=== PATIENT | male | born 1955 | race Caucasian/White ===

== ENCOUNTER → 2022-12-07 | Outpatient (CLI) | payer OTHER ==
--- NOTE | 2022-12-07 09:15 | CT ---
EXAMINATION TYPE: CT shoulder LT wo con CT DLP: 465 mGycm, Automated exposure control for dose reduction was used. DATE OF EXAM: 12/07/2022 7:45 AM COMPARISON: Extremity radiograph same day. CLINICAL INDICATION:Male, 67 years old with history of M19.012 PRIMARY OSTEOARTHRITIS, LEFT SHOULDER; TECHNIQUE: Axial images were obtained of the left shoulder . Additional coronal and sagittal reforma tted images and soft tissue and bone window were obtained for review. 3-D reconstruction was created on a separate workstation. Contrast used: None Oral contrast used: None FINDINGS: There is severe degeneration changes of the left shoulder with joint joint articulation, cy sts subchondral sclerosis. There is large osteophytes also present involving the humerus and glenoid. The glenoid bone appears to have minimal subcutaneous chondral cystic change. Rotator cuff muscles a ppears appropriate. No evidence of fracture. No joint effusion. No evidence or dislocation. IMPRESSION: End-stage left shoulder osteoarthrosis changes.
== END | disposition home or self-care (01) ==
LOC: RADCTMAIN 07:17
PROVIDERS: ATTEND Orthopaedic Surgery Sports Medicine
DX: M19.012 Primary osteoarthritis, left shoulder (principal)

== ENCOUNTER → 2023-01-27 | Outpatient (CLI) | payer OTHER ==
[2023-01-27 17:42] LABS: INR 0.9 (<1.2); Prothrombin Time 9.9 sec (9.0-12.0)
[2023-01-27 17:43] LABS: Partial Thromboplastin Time 23.4 sec (22.0-30.0)
[2023-01-27 20:56] LABS: ALT 34 U/L (10-49); AST 26 U/L (14-35); Albumin 4.8 d/dL (3.8-4.9); Albumin/Globulin Ratio 1.92 Ratio (1.60-3.17); Alkaline Phosphatase 81 U/L (41-126); BUN/Creat Ratio 17.14 Ratio (12.00-20.00); Calcium 10.3 mg/dL (8.7-10.3); Carbon Dioxide 27.6 mmol/L (21.6-31.8); Chloride 104 mmol/L (96-109); Globulin 2.5 d/dL (1.6-3.3); Glucose 120 mg/dL (70-110); Potassium 4.6 mmol/L (3.5-5.5); Sodium 143 mmol/L (135-145); Total Bilirubin 0.3 mg/dL (0.3-1.2); Total Protein 7.3 d/dL (6.2-8.2)
[2023-01-27 21:47] LABS: Appearance,Urine Clear (Clear); Bilirubin,Urine Negative (Negative); Blood,Urine Negative (Negative); Color,Urine Dark Yellow (Yellow); Ketones,Urine Negative (Negative); Nitrite,Urine Negative (Negative); PH, Urine 5.5; Specific Gravity,Urine 1.021 (1.001-1.030); Urobilinogen,Urine 0.2 E.U./DL
[2023-01-27 22:09] LABS: HGB 13.6 d/dL (13.0-17.0); MCV 91.1 FL (80.0-97.0); Mean Platelet Volume 10.5 FL (9.5-12.2); NRBC Per 100 WBC 0 X 10*3/uL (0.00-0.01); Platelet Count 324 X 10*3/uL (140-440); RBC 4.39 X 10*6/uL (4.40-5.60); RDW 12.8 % (11.5-14.5); WBC 8.22 X 10*3/uL (4.50-10.00)
== END | disposition home or self-care (01) ==
LOC: LABPAT 16:29
PROVIDERS: ATTEND Orthopaedic Surgery Sports Medicine
DX: Z01.812 Encounter for preprocedural laboratory examination (principal); M19.012 Primary osteoarthritis, left shoulder
CPT/HCPCS: 80053; 81003; 85027; 85610; 85730; 87070

== ENCOUNTER 2023-02-03 05:34 | Day surgery (SDC) | payer OTHER ==
[2023-01-27 15:49] VITALS: BMI 28.6
[~2023-02-03 05:34] MED LIST: ACETAMINOPHEN TAB 500 MG TAB PO PRN; DEXAMETHASONE SOD PHOSPHATE 4 MG/ML 1 ML VIAL IV ONE; GABAPENTIN 300 MG CAP PO PRN; HYDROmorphone 0.5 MG/0.5 ML SYRINGE IVP PRN; LIDOCAINE 1% (10MG/ML) FOR IV START INTRADERMA PRN; MELOXICAM 7.5 MG TAB PO PRN; MIDAZOLAM 2 MG/2 ML VIAL IV PRN; ONDANSETRON 4 MG/2 ML VIAL IVP ONE; ONDANSETRON 4 MG/2 ML VIAL IVP PRN; TRANEXAMIC 1,000 MG/100ML-NACL 1,000 MG in SALINE 1 100ML.BAG IVPB PRN
[2023-02-03] MEDS ORDERED: LACTATED RINGERS 1,000 ML IV ONE ×3 (06:03→09:04)
[2023-02-03] MEDS ORDERED: ROPIVACAINE 5 MG/ML 30 ML VIAL ONE (07:03)
[2023-02-03] MEDS ORDERED: fentaNYL (PF) 50 MCG/ML 2 ML AMP ONE (07:03)
[2023-02-03] MEDS ORDERED: PROPOFOL 10 MG/ML 20 ML VIAL IV ONE (07:03)
[2023-02-03] MEDS ORDERED: ROCURONIUM 10 MG/ML (5 ML VIAL) IV ONE (07:03)
[2023-02-03] MEDS ORDERED: VASOPRESSIN 20 UNIT/ML 1 ML VIAL ONE (07:03)
[2023-02-03] MEDS ORDERED: PHENYLEPHRINE-0.9% NACL SYG 1,000 MCG/10 ML SYRINGE ONE (07:03)
[2023-02-03] MEDS ORDERED: NEOSTIGMINE 1 MG/ML 10 ML VIAL ONE (07:03)
[2023-02-03] MEDS ORDERED: SUCCINYLCHOLINE CHLORIDE 200 MG/10 ML VIAL IV ONE (07:03)
[2023-02-03] MEDS ORDERED: DEXAMETHASONE SOD PHOSPHATE 4 MG/ML 1 ML VIAL ONE (07:03)
[2023-02-03] MEDS ORDERED: TRANEXAMIC 1,000 MG/100ML-NACL PREMIX BAG ONE (07:03)
[2023-02-03] MEDS ORDERED: GLYCOPYRROLATE 0.2 MG/ML 2 ML VIAL ONE (07:03)
[2023-02-03] MEDS ORDERED: LIDOCAINE 1% INJ 10MG/ML (20 ML MDV) ONE (07:03)
[2023-02-03] MEDS ORDERED: ePHEDrine 50 MG/ML 1 ML VIAL ONE (07:03)
[2023-02-03] MEDS ORDERED: ceFAZolin 1,000 MG in SODIUM CHLORIDE 0.9% 1,000 ML IRRIGATION ONE (07:30)
[2023-02-03] MEDS ORDERED: VANCOMYCIN 1,000 MG VIAL MISCELLANE ONE (08:39)
--- NOTE | 2023-02-03 08:57 | P.ANPRN ---
Procedure Note - Anesthesia - Nerve Block Performed Left Interscalene Single Time Out Performed: Yes Date of Procedure: 02/03/23 Procedure Start Time: 06:39 Procedure Stop Time: 06:46 Location of Patient: PreOp Indication: Acute Post-Operative Pain, Requested by Surgeon Sedation Type: Sedate with meaningful contact maintained Preparation: Sterile Prep, Sterile Dressing Position: Sitting Catheter: None Needle Types: Facet Needle Gauge: 21 Ultrasound used to visualize needle placement: Yes Ultrasound used to observe medication spread: Yes Injectate: 0.5% Ropivacaine (see comment for volume) (30 ml + decadron 4 mg) Blood Aspirated: No Pain Paresthesia on Injection Noted: No Resistance on Injection: Normal Image Stored and Saved: Yes Events: Uneventful and Well Tolerated
[2023-02-03] MEDS ORDERED: METOCLOPRAMIDE 5 MG/ML 2 ML VIAL IVP PRN (09:04)
[2023-02-03] MEDS ORDERED: hydrOXYzine pamoate 25 MG CAP PO PRN (09:04)
[2023-02-03] MEDS ORDERED: diphenhydrAMINE 25 MG CAP PO PRN (09:04)
[2023-02-03] MEDS ORDERED: HYDROmorphone 1 MG/ML 1 ML SYRINGE IVP PRN (09:04)
[2023-02-03] MEDS ORDERED: HYDROmorphone 0.5 MG/0.5 ML SYRINGE IVP PRN ×2 (09:04)
[2023-02-03] MEDS ORDERED: ONDANSETRON 4 MG/2 ML VIAL IVP PRN (09:04)
[2023-02-03] MEDS ORDERED: SENNOSIDES-DOCUSATE SODIUM 1 EACH TAB PO PRN (09:04)
--- NOTE | 2023-02-03 09:47 | OP ---
OPERATIVE REPORT DATE OF SERVICE : 02/03/2023 CARD READER: Del Cohen PA-C PREOPERATIVE DIAGNOSIS: Left shoulder osteoarthrosis. POSTOPERATIVE DIAGNOSES: 1. Left shoulder advanced osteoarthrosis. 2. Left shoulder supraspinatus tear. PROCEDURE PERFORMED: Left reverse total shoulder arthroplasty. ANESTHESIA: General endotracheal. ESTIMATED BLOOD LOSS: 100 mL. DRAINS: None. COMPLICATIONS: None apparent. DISPOSITION: Postanesthesia care unit. INDICATIONS: David is a very pleasant 67-year-old male with longstanding left shoulder pain. Workup including x-rays revealed advanced osteoarthrosis of the left shoulder. At this point, it was felt that he has failed conservative management. He would like to proceed with operative intervention. Risks of the procedure were discussed with him in detail. These risks include, but are not limited to, risk of infection, nerve damage, bleeding, pain, instability in the shoulder, loosening of the implants, and deep infection. There is also a small risk of deep vein thrombosis which could lead to fatal pulmonary embolism. The patient understood these risks. All of his questions with regard to the risks of procedure were answered to his satisfaction. An appropriate informed consent was obtained. DESCRIPTION OF PROCEDURE: The patient was identified in the preoperative holding area. Surgical site was marked by both the patient and myself. He was given 2 g of Ancef IV for prophylactic purposes. He was then transported to the operative suite. He was placed supine on the operating room table. General anesthetic was then administered and dosed per the Anesthesia Department without apparent complication. Examination under anesthesia was then performed of the left shoulder. He had elevation to 90 degrees. External rotation at the side was to 10 degrees. The patient was then placed into the beach chair position well-padded in preparation for surgery. Great care was taken to ensure that the cervical spine was in neutral alignment, well-padded and maintained that way throughout the operative procedure. Great care was taken to ensure that his legs were appropriately padded as well. The patient's left upper extremity was then prepped and draped in usual sterile fashion. Standard surgical pause was undertaken to ensure that we were operating the correct site and that appropriate preoperative antibiotics had been given. All staff in the room were in agreement, and we proceeded. The acromion AC joint clavicle and coracoid were marked with a surgical pen. A planned incision starting at the level of clavicle and extending distally over the deltopectoral interval approximately 1 cm lateral to the coracoid was marked with a surgical pen. The incision was then made with a 10-blade scalpel. Dissection was carried down sharply to the deltoid fascia. The deltopectoral interval was then identified at the level of the clavicle. A small band retractor was then placed under the proximal deltoid. I then released the deltoid fascia on the lateral aspect of the cephalic vein. The cephalic vein was protected and left in its bed medially. The cephalic vein was protected throughout the entire case. I then identified the clavipectoral fascia. This was incised proximally to the level of the coracoacromial ligament. The coracoacromial ligament was then left intact. I then used my finger to spread the interval between the conjoint tendon and the subscapularis. I felt for the axillary nerve, which was readily palpable. I then cleared the subacromial subdeltoid spaces of bursal and scar tissue. I then utilized a Brown retractor to hold the deltoid and expose the humeral head. I then proceeded with release of the subscapularis in the anterior inferior shoulder capsule. The rotator cuff was inspected. He did have a tear of the supraspinatus. The rotator interval was then identified. The course of the biceps tendon was also identified. I then released the biceps tendon and tenodesed it to the surrounding soft tissue of the bicipital groove utilizing interrupted 0 Vicryl sutures. I then released the rotator interval. This was released at the base of the coracoid and then out laterally. The subscapularis and capsule were then released intertendinously. The subscapularis and capsule release extended distally in a lazy-S fashion approximately 1 cm medial to the bicipital groove. I then continued to release the capsule along the inferior neck in a vertical fashion to approximately the 6 o'clock position. Great care was taken to ensure that the capsule was always visualized as it was released as to avoid injuring the axillary nerve. I then brought the Faye investment underwriter with the arm externally rotated and abducted. I continued to release the capsule inferomedially to approximately the 4 o'clock position. He had very extensive inferior osteophytes and multiple osseous loose bodies in the inferior axillary pouch. Quite a few of these osteophytes were then removed at this point with a rongeur. I then proceeded with preparation of the humerus. I removed as much of the goat's major osteophytes as possible. I then removed the subchondral plate from the superior aspect of the humeral head utilizing a large rongeur. I then used a starting reamer to gain access to the humeral canal. This was approximately 1 cm medial to the rotator cuff insertion and 1 cm posterior to the bicipital groove. I then prepared the humeral canal with hand reaming. I started with a 6 mm reamer and progressed incrementally in 1 mm increments until firm resistance was encountered at 12 mm. The reamer handle was then left in place. I then utilized a humeral resection guide set at 30 degrees of retrotorsion. The cutting block was set approximately 1 mm above the insertion of the rotator cuff. I then proceeded to osteotomize the head with the oscillating saw. I removed the resection guide and then completed the osteotomy. At this point, I did remove the remaining inferior osteophytes. Again, we had extremely extensive inferior osteophytes. These were removed with a rongeur and multiple loose bodies removed posteriorly as well. I then proceeded with trial stem placement. I broached the canal starting with an 8 mm broach and then incrementally increased up to 12 mm broach. The 12 mm trial stem was then left in place. I made a decision to proceed with a reverse total shoulder arthroplasty given the rotator cuff tear. A bone hook was then used to pull the humerus out laterally. I then continued to inspect the joint for any loose bodies. A few more small ones were removed at this point. The Bhattman retractor was then placed on the posterior glenoid reamer. The arm was then placed in approximately 80 degrees of abduction and in slight flexion on the Faye stand. I then proceeded to remove the hypertrophic labrum to definitively identify the actual glenoid. It did have some posterior glenoid wear. The starting pin was then placed in 10 degrees of inferior tilt and aimed to preferentially take slightly a bit more of the anterior glenoid bone. I then reamed the glenoid with the mini base plate reamer. The reaming was done as minimal as possible as to preserve as much subchondral bone as possible. I then proceeded to place the mini base plate. This was impacted into the real glenoid. I then placed the central screw. A 30 mm central screw was placed. The screw had excellent purchase in bone. I was able to rotate the scapula through the screwdriver when the screw was fully seated. I then proceeded to place peripheral locking screws. The posterior, superior, and inferior screws were placed. The inferior screw was 25 mm and the posterior and superior screws were 15 mm. I then proceeded to placement of the real glenosphere. A 36 mm glenosphere was chosen. I preferentially offset it slightly so that would offset inferiorly. The Diallo taper was dried and then the real glenosphere was impacted onto the base plate. The Diallo taper was firm, I was unable to remove the glenosphere after it was tamped down. I then proceeded with trial with the real glenosphere in. The shoulder was thoroughly irrigated with sterile saline solution with antibiotic added via pulse lavage. We did utilize some of the IrriSept antiseptic solution at this point. I then placed a standard tray and standard poly trial onto the trial stem. The shoulder was then reduced. It was a moderately difficult reduction. The shoulder was very stable throughout a full range of motion. There was no impingement noted. The shoulder was then redislocated very carefully. I made a decision to proceed with the standard tray and standard poly. The trial components were then removed. Again, the wound was thoroughly irrigated with sterile saline solution with antibiotic added via pulse lavage. Again, we utilized the IrriSept antiseptic solution. I then had the business office representative open a size 12 mini stem, a standard tray and a standard poly for 36 mm glenosphere. The stem was then impacted into the proximal humerus in approximately 30 degrees of retrotorsion. The Diallo taper was dried and then the base plate polyethylene was then impacted onto the real stem. The shoulder was then reduced. Again, it was a mildly difficult reduction. It was taken through a full range of motion. It was very stable. There was no undue tension on the conjoint tendon. I felt for the axillary nerve which was readily palpable and intact. At this point in time, no further work was deemed necessary. The shoulder was again thoroughly irrigated and the remaining IrriSept solution was utilized. Approximately 500 mg of vancomycin powder was then placed deep. The deltopectoral interval was reapproximated with 0 Vicryl interrupted suture. The remaining 500 mg of vancomycin powder was then placed subcutaneously. The subcutaneous tissue was closed with 2-0 Vicryl interrupted suture and the skin was closed with 3-0 Quill running suture. Dermabond was applied to the incision. Sterile dressing was applied and the patient's left upper extremity was placed in a standard sling. All sponge and needle counts were deemed correct prior to closure. The patient tolerated the procedure without apparent complication. He was transferred to the recovery room in stable condition. MMODL / NATON: [id number] /
--- NOTE | 2023-02-03 10:00 | XR ---
EXAMINATION TYPE: XR shoulder limited LT DATE OF EXAM: 02/03/2023 COMPARISON: NONE HISTORY: Postop TECHNIQUE: One view submitted FINDINGS: Soft tissue edema and air. Left basilar subsegmental consolidation. Postoperative changes a re seen. AC joint arthropathy. IMPRESSION: Postsurgical change left shoulder.
[2023-02-03] MEDS: LACTATED RINGERS 1,000 ML IV SCH ×3 (11:02→19:49)
[2023-02-03] MEDS: HYDROcodone/APAP 7.5-325MG 1 EACH TAB PO PRN ×2 (11:48→18:21)
--- NOTE | 2023-02-03 12:07 | P.CONS ---
History of Present Illness - Reason for Consult Consult date: 02/03/23 Medical Management Requesting physician: Surinder Amor - History of Present Illness Hospital course: Patient is a very pleasant 67-year-old male with a past medical history of hyp ertension, hyperlipidemia, GERD, and osteoarthrosis. He is admitted under orthopedic surgery team status post elective left reverse total shoulder arthroplasty. Surgical procedure completed by Dr. Amor. We have been consulted for medical management throughout his hospitalization. Patient was seen and fully evaluated at bedside. He was resting in bed, left arm in sling, and patient reports controlled postoperative pain at this time. Movement and sensation of fingers and hand is intact. Patient denies having any headache, lightheadedness, dizziness, chest pain, palpitations, shortness of breath, or any other complaints at this time. He denies having any postoperative nausea and vomiting and has been tolerating oral intake without any difficulties. Physical exam: Vital signs reviewed and stable. General: Nontoxic, no distress and appears stated age. Derm: Skin warm and dry, normal coloration for ethnicity. Head: Atraumatic, normocephalic and symmetric. Eyes: EOMs intact, no lid lag, and anicteric sclera Mouth: no lip lesions, mucus membranes moist Cardiovascular: regular rate and rhythm with normal S1S2, no murmur, positive posterior tibial pulses bilaterally, and cap refill < 2 seconds. Lungs: Respirations even, regular, and unlabored on room air. Lungs CTA bilaterally, no rhonchi, no rales, no wheezing, and no accessory muscle usage. Abdominal: soft, nontender to palpation, no guarding, no appreciable organomegaly Ext: Movement and sensation intact. No gross muscle atrophy, no edema, no contractures left arm in sling. Postoperative dressing to left shoulder Neuro: Speech clear, face symmetrical and CN II-XII grossly intact with no noted focal neuro deficits Psych: Alert and oriented to person, place, time, and situation. Appropriate and pleasant affect. Assessment and Plan of Care: Osteoarthrosis Status post left reverse total shoulder arthroplasty Management per primary admitting orthopedic surgery team including DVT prophylaxis, pain management, weightbearing, wound/dressing changes, and PT/OT. DVT prophylaxis currently with ANDRÉS bejarano and SCDs. Hypertension Hyperlipidemia Patient to continue daily medication regimen with amlodipine 10 mg nightly, atorvastatin 40 mg nightly, hydrochlorothiazide 25 mg daily, and lisinopril 40 mg daily. Vital signs reviewed and stable. Blood pressure 111/70, heart rate 58, respiratory rate 18, and SpO2 of 91% on room air. *Order placed for morning CBC, CMP, and magnesium. We will follow-up on these results and place additional orders as indicated based upon these findings. Postoperative labs to be compared to preoperative labs completed 01/27/23 showing a preoperative hemoglobin of 13.6. Thank you for allowing us to participate in the care of this pleasant patient. Do not hesitate to contact us with questions. Someone can be reached from the [facility] hospitalist group all hours of the day at [phone] or via [employer]. Patient was seen independently by Nurse Pracitioner. This document was prepared using [employer] dictation software. Please allow for errors in sewer pipe layer, while rare they do occur. Past Medical History Past Medical History: GERD/Reflux, Hyperlipidemia, Hypertension History of Any Multi-Drug Resistant Organisms: None Reported Past Surgical History: Orthopedic Surgery Additional Past Surgical History / Comment(s): BILAT KNEE SCOPES Past Anesthesia/Blood Transfusion Reactions: No Reported Reaction Past Psychological History: No Psychological Hx Reported Smoking Status: Never smoker Past Alcohol Use History: Occasional Past Drug Use History: Marijuana Additional Drug Use History / Comment(s): USES CBD GUMMIES AT NIGHT-INSTRUCTED TO REFRAIN FROM USE FOR AT LEAST 24 HOURS PRIOR TO PROCEDURE - Past Family History Mother Family Medical History: Cancer Medications and Allergies Home Medications Medication Instructions Recorded Confirmed Type Ibuprofen [Motrin Ib] 400 mg PO Q8H PRN 01/27/23 01/27/23 History Omeprazole 20 mg PO DAILY 01/27/23 01/27/23 History Rosuvastatin [Crestor] 20 mg PO HS 01/27/23 01/27/23 History amLODIPine [Norvasc] 10 mg PO HS 01/27/23 01/27/23 History hydroCHLOROthiazide 25 mg PO DAILY 01/27/23 01/27/23 History lisinopriL 40 mg PO DAILY 01/27/23 01/27/23 History Doxycycline Hyclate 100 mg PO BID #10 tab 02/03/23 Rx Allergies Allergy/AdvReac Type Severity Reaction Status Date / Time No Known Allergies Allergy Verified 01/27/23 15:33 Physical Exam Vitals: Vital Signs Temp Pulse Resp BP Pulse Ox 02/03/23 10:27 97.4 F L 65 17 110/68 94 L 02/03/23 10:10 62 16 108/68 95 02/03/23 09:50 63 15 104/62 94 L 02/03/23 09:35 70 17 108/62 93 L 02/03/23 09:20 68 15 111/66 99 02/03/23 09:04 97 F L 76 16 113/64 97 02/03/23 06:47 58 L 18 111/72 98 02/03/23 05:59 898.3 F H 69 18 136/83 95 Intake and Output 02/02/23 02/03/23 02/03/23 22:59 06:59 14:59 Intake Total 200 901 Output Total 100 Balance 200 801 Intake: IV 200 901 Output: Estimated Blood Loss 100 Other: Weight 97.1 kg 97.1 kg
[2023-02-03] MEDS ORDERED: amLODIPine 10 MG TAB PO SCH (21:00)
[2023-02-03] MEDS ORDERED: ATORVASTATIN 40 MG TAB PO SCH (21:00)
[2023-02-04] MEDS: HYDROcodone/APAP 7.5-325MG 1 EACH TAB PO PRN ×2 (01:37→10:14)
[2023-02-04] MEDS: LACTATED RINGERS 1,000 ML IV SCH ×2 (05:02)
[2023-02-04] MEDS ORDERED: PANTOPRAZOLE 40 MG TABLET PO SCH (07:30)
[2023-02-04 08:54] LABS: Basophils # (A) 0.02 X 10*3/uL (0.00-0.10); Basophils % (A) 0.2 %; Eosinophils # (A) 0.03 X 10*3/uL (0.04-0.35); Eosinophils % (A) 0.2 %; HCT 33.1 % (39.6-50.0); HGB 11.2 d/dL (13.0-17.0); Lymphocytes # (A) 1.66 X 10*3/uL (0.90-5.00); Lymphocytes % (A) 12.7 %; MCH 30.5 pg (27.0-32.0); MCHC 33.8 d/dL (32.0-37.0); MCV 90.2 FL (80.0-97.0); Monocytes % (A) 9.2 %; NRBC Per 100 WBC 0 X 10*3/uL (0.00-0.01); Neutrophils # (A) 10.07 X 10*3/uL (1.80-7.70); Neutrophils % (A) 77.2 %; Platelet Count 276 X 10*3/uL (140-440); RBC 3.67 X 10*6/uL (4.40-5.60); WBC 13.05 X 10*3/uL (4.50-10.00)
[2023-02-04] MEDS ORDERED: lisinopriL 20 MG TAB PO SCH (09:00)
[2023-02-04] MEDS ORDERED: hydroCHLOROthiazide 25 MG TAB PO SCH (09:00)
[2023-02-04 09:36] LABS: BUN/Creat Ratio 21.42 Ratio (12.00-20.00); Blood Urea Nitrogen 25.7 mg/dL (9.0-27.0); Calcium 8.9 mg/dL (8.7-10.3); Carbon Dioxide 25.2 mmol/L (21.6-31.8); Chloride 104 mmol/L (96-109); Glucose 117 mg/dL (70-110); Magnesium 2.1 mg/dL (1.5-2.4); Sodium 140 mmol/L (135-145)
--- NOTE | 2023-02-04 14:24 | P.DS ---
Providers Expected date of discharge: 02/04/23 Attending physician: Surinder Amor Consults: 02/03/23 09:04 Consult Physician Routine Consulting Provider: Josiah Byers Consult Reason/Comments: post op medical management Do you want consulting provider notified?: Yes Primary care physician: Vinny Shaffer - Discharge Diagnosis(es) (1) Status post total replacement of left shoulder Patient was admitted to the OR on 02/03/23 to undergo a left reverse total shoulder arthroplasty. He had failed conservative measures as an outpatient and desired to proceed with elective surgery after given informed consent. He underwent the above procedure which he tolerated well without complication. Postoperative hospital course has remained without complication. On day of discharge he is afebrile, vital signs stable, labs within acceptable ranges, tolerating by mouth meds and diet, voiding without difficulty, positive flatus, denies abdominal pain or calf pain, pain is controlled on oral pain medication and has no new complaints. Wound is benign, neurovascular status is intact, calf is soft and nontender, abdomen soft and nontender. Review of systems is negative for numbness, tingling, fever, chills, chest pain, shortness of breath, nausea, vomiting, dizziness, headaches, slurred speech or other. Current Visit: Yes Status: Acute Priority: Medium Procedures: Left RTSA Patient Condition at Discharge: Good Plan - Discharge Summary Discharge Rx Participant: No New Discharge Prescriptions: New Doxycycline Hyclate 100 mg PO BID #10 tab Docusate [Colace] 100 mg PO BID #60 capsule Ondansetron [Zofran] 4 mg PO Q8HR PRN #21 tab PRN Reason: Nausea HYDROcodone/APAP 7.5-325MG [[place] 7.5-325] 1 - 2 each PO Q6HR PRN #42 tab PRN Reason: Pain No Action Ibuprofen [Motrin Ib] 400 mg PO Q8H PRN PRN Reason: Pain amLODIPine [Norvasc] 10 mg PO HS lisinopriL 40 mg PO DAILY hydroCHLOROthiazide 25 mg PO DAILY Rosuvastatin [Crestor] 20 mg PO HS Omeprazole 20 mg PO DAILY Discharge Medication List Ibuprofen [Motrin Ib] 400 mg PO Q8H PRN 01/27/23 [History] Omeprazole 20 mg PO DAILY 01/27/23 [History] Rosuvastatin [Crestor] 20 mg PO HS 01/27/23 [History] amLODIPine [Norvasc] 10 mg PO HS 01/27/23 [History] hydroCHLOROthiazide 25 mg PO DAILY 01/27/23 [History] lisinopriL 40 mg PO DAILY 01/27/23 [History] Doxycycline Hyclate 100 mg PO BID #10 tab 02/03/23 [Rx] Docusate [Colace] 100 mg PO BID #60 capsule 02/04/23 [Rx] HYDROcodone/APAP 7.5-325MG [[place] 7.5-325] 1 - 2 each PO Q6HR PRN #42 tab 02/04/23 [Rx] Ondansetron [Zofran] 4 mg PO Q8HR PRN #21 tab 02/04/23 [Rx] Follow up Appointment(s)/Referral(s): Surinder Amor MD [STAFF PHYSICIAN] - 02/15/23 8:20 am Patient Instructions/Handouts: Shoulder Arthroplasty (DC) Discharge Disposition: HOME SELF-CARE
--- NOTE | 2023-02-04 16:00 | P.PN ---
Subjective Progress Note Date: 02/04/23 Hospital course: Patient is a very pleasant 67-year-old male with a past medical history of hypertension, hyperlipidemia, GERD, and osteoarthrosis. He is admitted under orthopedic surgery team status post elective left reverse total shoulder arthroplasty. Surgical procedure completed by Dr. Amor. We were consulted for medical management throughout his hospitalization. Physical exam: Patient seen and fully evaluated at bedside this morning. Patient reports feeling great this morning and ready to go home. Vital signs reviewed and stable. Vital signs reviewed and stable with blood pressure 128/79, heart rate 70, respiratory rate 19, 97.7, and SpO2 of 94% on room air. General: Nontoxic, no distress and appears stated age. Derm: Skin warm and dry, normal coloration for ethnicity. Head: Atraumatic, normocephalic and symmetric. Eyes: EOMs intact, no lid lag, and anicteric sclera Mouth: no lip lesions, mucus membranes moist Cardiovascular: regular rate and rhythm with normal S1S2, no murmur, positive posterior tibial pulses bilaterally, and cap refill < 2 seconds. Lungs: Respirations even, regular, and unlabored on room air. Lungs CTA bilaterally, no rhonchi, no rales, no wheezing, and no accessory muscle usage. Abdominal: soft, nontender to palpation, no guarding, no appreciable organomegaly Ext: Movement and sensation intact. No gross muscle atrophy, no edema, no contractures left arm in sling. Postoperative dressing to left shoulder Neuro: Speech clear, face symmetrical and CN II-XII grossly intact with no noted focal neuro deficits Psych: Alert and oriented to person, place, time, and situation. Appropriate and pleasant affect. Assessment and Plan of Care: Acute postoperative blood loss anemia -Acute postoperative blood loss anemia as his stable and expected finding with postoperative hemoglobin of 11.2 and preoperative hemoglobin of 13.6. No need for interventions or further testing at this time. Osteoarthrosis Status post left reverse total shoulder arthroplasty Management per primary admitting orthopedic surgery team including DVT prophylaxis, pain management, weightbearing, wound/dressing changes, and PT/OT. DVT prophylaxis currently with ANDRÉS bejarano and Leonel. Hypertension Hyperlipidemia Patient to continue daily medication regimen with amlodipine 10 mg nightly, atorvastatin 40 mg nightly, hydrochlorothiazide 25 mg daily, and lisinopril 40 mg daily. Data reviewed: Postoperative labs completed and reviewed. CBC showing mild leukocytosis with WBC count of 13.05 and stable normocytic anemia with hemoglobin of 11.2. BMP was unremarkable. Vital signs reviewed and stable. Blood pressure 111/70, heart rate 58, respi ratory rate 18, and SpO2 of 91% on room air. Patient is medically cleared for discharge once cleared by primary admitting orthopedic surgery team. Thank you for allowing us to participate in the care of this pleasant patient. Do not hesitate to contact us with questions. Someone can be reached from the [facility] hospitalist group all hours of the day at [phone] or via [employer]. Patient was seen independently by Nurse Pracitioner. This document was prepared using [employer] dictation software. Please allow for errors in evaporator operator molasses, while rare they do occur. Objective - Vital Signs Vital signs: Vital Signs Temp 97.7 F 02/04/23 07:41 Pulse 70 02/04/23 07:41 Resp 19 02/04/23 07:41 BP 128/79 02/04/23 07:41 Pulse Ox 94 L 02/04/23 07:41 FiO2 Intake & Output 02/03/23 02/04/23 02/04/23 18:59 06:59 18:59 Intake Total 2061 Output Total 100 Balance 1961 Weight 97.1 kg Intake: IV 901 Intake, IV Titration 100 Amount ceFAZolin 2 gm In Sodium 100 Chloride 0.9% 50 ml @ 100 mls/hr IVPB Q8H [facility] Rx#: [id number] Oral 1060 Output: Estimated Blood Loss 100 Other: # Voids 3 2 - Labs CBC & Chem 7: 02/04/23 06:04 02/04/23 06:04
[2023-02-04 17:23] VITALS: BP 166/77; PULSE 79; RESP 18; TEMP 97.8
== END 2023-02-04 14:45 | disposition home or self-care (01) ==
LOC: OR 05:34 → 4SSUR 10:13 → OR 02-04 14:45
PROVIDERS: ATTEND Orthopaedic Surgery Sports Medicine
DX: M19.012 Primary osteoarthritis, left shoulder (principal); G89.18 Other acute postprocedural pain; I10 Essential (primary) hypertension; E78.5 Hyperlipidemia, unspecified; Z79.899 Other long term (current) drug therapy; K21.9 Gastro-esophageal reflux disease without esophagitis
CPT/HCPCS: 64415; 80048; 83735; 85025; 73020; 23472; C1776; J2250; J3370; J1100; J0690 ×2; J2405; J1170

== ENCOUNTER 2023-12-14 09:05 | Day surgery (SDC) | payer OTHER ==
[2023-12-14] MEDS ORDERED: PROPOFOL 10 MG/ML 20 ML VIAL IV ONE (12:01)
[2023-12-14] MEDS ORDERED: LACTATED RINGERS 1,000 ML BAG ONE (12:01)
--- NOTE | 2023-12-16 15:57 | PCN ---
PROCEDURE NOTE REQUESTING PHYSICIAN: Dr. Vinny Shaffer. BRIEF HISTORY: The patient is a 68-year-old pleasant white male scheduled for an elective colonoscopy as a part of evaluation of prior history of colon polyps. Last colonoscopy was 5 years ago and was noted to have a tubular adenoma. PROCEDURE PERFORMED: Colonoscopy. PREOPERATIVE DIAGNOSIS: History of colon polyps. ANESTHESIA: IV sedation per Anesthesia. DESCRIPTION OF PROCEDURE: After informed consent was obtained from the patient, he was brought in to the endoscopy unit. IV conscious sedation was administered by Anesthesia under continuous monitoring. Initial digital rectal examination was normal. The Olympus CF-190 video colonoscope was then inserted in the rectum, gradually advanced into the cecum. Careful examination was performed and the scope was gradually being withdrawn. The ileocecal valve and the appendiceal orifice were visualized and appeared normal. The prep was excellent. Mucosa of the cecum, ascending colon, transverse colon, descending colon, sigmoid colon, and rectum appeared normal. There were diffuse diverticulosis noted throughout the entire colon. In the rectum, retroflexion was performed, no lesions were noted, and the patient tolerated the procedure well. IMPRESSION: 1. Diffuse scattered diverticulosis. 2. No evidence of colorectal neoplasia. RECOMMENDATIONS: Findings of this examination were discussed with the patient as well as his family. He was advised to have a repeat screening colonoscopy in 10 years. MMODL / IJN: [id number] /
== END 2023-12-14 13:18 ==
LOC: ORWHC2ENDO 09:05
PROVIDERS: ATTEND Internal Medicine Gastroenterology
DX: Z12.11 Encounter for screening for malignant neoplasm of colon (principal); D12.4 Benign neoplasm of descending colon; K52.9 Noninfective gastroenteritis and colitis, unspecified; K57.30 Diverticulosis of large intestine without perforation or abscess without bleeding; E78.5 Hyperlipidemia, unspecified; Z86.010 Personal history of colon polyps; Z86.73 Personal history of transient ischemic attack (TIA), and cerebral infarction without residual deficits; Z79.899 Other long term (current) drug therapy
CPT/HCPCS: 45378